=== PATIENT | male | born 1965 | race Caucasian/White ===

== ENCOUNTER → 2016-07-12 | Outpatient (CLI) | payer OTHER ==
[2016-07-12 17:59] LABS: FREE T4 (FREE THYROXINE) 1.2 ng/dL (0.93-1.71)
== END ==
LOC: LAB 09:10
DX: E03.9 Hypothyroidism, unspecified (principal)
CPT/HCPCS: 84439; 84443

== ENCOUNTER → 2016-08-30 | Outpatient (CLI) | payer OTHER ==
[2016-08-30 17:59] LABS: FREE T4 (FREE THYROXINE) 1.05 ng/dL (0.93-1.71)
== END ==
LOC: LAB 08:07
PROVIDERS: ATTEND Nurse Practitioner Family
DX: E03.9 Hypothyroidism, unspecified (principal)
CPT/HCPCS: 84439; 84443

== ENCOUNTER → 2016-10-21 | Outpatient (CLI) | payer OTHER | LOC: LAB 09:07 | PROVIDERS: ATTEND Nurse Practitioner Family | DX: E03.9 Hypothyroidism, unspecified (principal) | CPT/HCPCS: 84443 ==